=== PATIENT | female | born 1945 | race Caucasian/White ===

== ENCOUNTER → 2018-05-26 | Outpatient (CLI) | payer MEDICARE, MEDICAID | END | disposition home or self-care (01) | LOC: CFH 09:29 | PROVIDERS: ATTEND Family Medicine | DX: Z12.31 Encounter for screening mammogram for malignant neoplasm of breast (principal) | CPT/HCPCS: 77067 ==

== ENCOUNTER → 2018-06-27 | Outpatient (CLI) | payer MEDICARE, MEDICAID | END | disposition home or self-care (01) | LOC: CFH 14:24 | PROVIDERS: ATTEND Family Medicine | DX: Z13.820 Encounter for screening for osteoporosis (principal); E83.52 Hypercalcemia; M81.8 Other osteoporosis without current pathological fracture | CPT/HCPCS: 77080 ==

== ENCOUNTER 2019-03-20 14:12 | Outpatient (CLI) | payer MEDICARE, MEDICAID | END 2019-03-20 23:59 | disposition home or self-care (01) | LOC: RAD 14:12 | PROVIDERS: ATTEND Surgery | DX: E04.1 Nontoxic single thyroid nodule (principal); E21.0 Primary hyperparathyroidism | CPT/HCPCS: 10005; 88173 ==

== ENCOUNTER 2019-03-23 12:36 | Outpatient (CLI) | payer MEDICARE, MEDICAID | END 2019-03-23 23:59 | disposition home or self-care (01) | LOC: RAD 12:36 | PROVIDERS: ATTEND Surgery | DX: E07.9 Disorder of thyroid, unspecified (principal) | CPT/HCPCS: 78070; A9500 ==

== ENCOUNTER → 2020-06-25 | Outpatient (CLI) | payer MEDICARE, MEDICAID ==
[~2020-06-25] MED LIST: ACET325T14 PO; ASPI325T17 PO; CHOL40002 PO; IBUP200T64 PO; MULT-449 PO; PRAV40TA2 PO
== END | disposition home or self-care (01) ==
LOC: CFH 10:34
PROVIDERS: ATTEND Family Medicine
DX: Z12.31 Encounter for screening mammogram for malignant neoplasm of breast (principal); M81.0 Age-related osteoporosis without current pathological fracture
CPT/HCPCS: 77063; 77067; 77080